=== PATIENT | male | born 1965 | race Two or more races ===

== ENCOUNTER → 2024-10-16 | Outpatient (CLI) | payer MEDICAID ==
[~2024-10-16] VITALS: Ht 185.4 cm; Wt 89.8 kg
[2024-10-16 08:40] VITALS: BP 132/75; PULSE 76; RESP 16
--- NOTE | 2024-10-16 10:23 | DVHCARD ---
Cardiology Stress Test [place] Treadmill Stress Test [place] Referring MD: MD Ketan Protocol: Chemo (without cardiolite) Reason for referral: Other (Palpitations) Target heart Rate:@85%: 136 Percent MPHR: 161 METS: 10.1 Resting Heart rate: 76 Resting Blood Pressure: 132/75 Exercise Heart Rate: 151 Exercise Blood Pressure: 212/149 Baseline EKG: Normal sinus rhythm Stress EKG: Sinus tachycardia Functional Capacity: Good Normal Heart Rate Response: Adequate Blood Pressure Response: Hypertensive Clinical response: Non-ischemic Arrhythmia?: No Cardiolite Injected?: No ST-T Changes: Non/Minimal Probability of Inducible Ische: Low Date of Service: Oct 16, 2024 Billing Provider: WHITLEY CASTRO Cardiology Common Codes: PROCEDURE ONLY Treadmill w/o Cardiolite: [id number], INTERP, RPT WHITLEY CASTRO Oct 16, 2024 10:23
== END | disposition home or self-care (01) ==
LOC: XYW 08:07
PROVIDERS: ATTEND Internal Medicine Pulmonary Disease
DX: R00.2 Palpitations (principal)
CPT/HCPCS: 93017